=== PATIENT | female | born 1960 | race African-American/Black ===

== ENCOUNTER 2023-01-24 11:52 | Emergency (ER) | payer BC, OTHER ==
[2023-01-24] MEDS ORDERED: Dexamethasone 20 MG/5 ML VIAL ONE (12:26)
[2023-01-24] MEDS ORDERED: Ketorolac Tromethamine 60 MG/2 ML VIAL ONE (12:26)
== END 2023-01-24 12:54 | disposition home or self-care (01) ==
LOC: NAV ERS 11:52
DX: S39.012A Strain of muscle, fascia and tendon of lower back, initial encounter (principal); F17.210 Nicotine dependence, cigarettes, uncomplicated; X50.1XXA Overexertion from prolonged static or awkward postures, initial encounter
CPT/HCPCS: 96372; 99283; J1100; J1885